=== PATIENT | male | born 1970 | race Caucasian/White ===

== ENCOUNTER 2020-04-16 07:50 | Day surgery (SDC) | payer BC ==
[~2020-04-16 07:50] MED LIST: Lidocaine 1%/Sod Bicarbonate in NS 8.4% 1 ML Syringe IDERM PRN; Sodium Chloride 0.9% 10 ML Syringe FLUSH PRN
--- NOTE | 2020-04-16 08:03 | PCM.PREANE ---
Preanesthetic Assessment - Procedure Proposed Procedure: Screening Colonoscopy - Anesthesia/Transfusion/Family Hx Anesthesia History: Prior Anesthesia Without Reaction Family History of Anesthesia Reaction: No Transfusion History: No Prior Transfusion(s) Intubation History: Unknown - Review of Systems General: No Symptoms Pulmonary: No Symptoms (Chew: 1 can/week ETOH:8-14 drinks per week.) Cardiovascular: No Symptoms (history of HTN, elevated cholesterol) Gastrointestinal: Diarrhea Neurological: No Symptoms (Motion sickness/lower back pain none present today.) Other: Reports: Easy Bleeding - Physical Assessment NPO Status Date: 04/16/20 NPO Status Time: 04:00 Vital Signs: HR:68 B/P:116/86 Sat:96% Temp:97.5 Resp:14 Height: 1.73 m Weight: 82 kg ASA Class: 2 Mental Status: Alert & Oriented x3 Airway Class: Mallampati = 2 Dentition: Reports: Normal Dentition, Caries Thyro-Mental Finger Breadths: 3 Mouth Opening Finger Breadths: 3 ROM/Head Extension: Full Lungs: Clear to Auscultation, Normal Respiratory Effort Cardiovascular: Regular Rate, Regular Rhythm, No Murmurs - Lab Values: Labs reviewed and noted and within acceptable ranges to proceed with scheduled procedure. - Allergies Allergies/Adverse Reactions: Allergies Allergy/AdvReac Type Severity Reaction Status Date / Time No Known Allergies Allergy Verified 04/15/20 13:31 - Anesthesia Plan Pre-Op Medication Ordered: None - Acknowledgements Anesthesia Type Planned: MAC Pt an Appropriate Candidate for the Planned Anesthesia: Yes Alternatives and Risks of Anesthesia Discussed w Pt/Guardian: Yes Pt/Guardian Understands and Agrees with Anesthesia Plan: Yes PreAnesthesia Questionnaire HEENT History: Reports: None Cardiovascular History: Reports: None Respiratory History: Reports: None Gastrointestinal History: Reports: None Genitourinary History: Reports: None CLAIMS ASSOCIATE History: Reports: None Musculoskeletal History: Reports: None Neurological History: Reports: None Psychiatric History: Reports: None Endocrine/Metabolic History: Reports: None Hematologic History: Reports: None Immunologic History: Reports: None Oncologic (Cancer) History: Reports: None Dermatologic History: Reports: Other (See Below) Other Dermatologic History: neck mass, sebacous cyst - Infectious Disease History Infectious Disease History: Reports: None - Past Surgical History Head Surgeries/Procedures: Reports: None HEENT Surgical History: Reports: None Cardiovascular Surgical History: Reports: None Respiratory Surgical History: Reports: None GI Surgical History: Reports: None Male Surgical History: Reports: Vasectomy Endocrine Surgical History: Reports: None Neurological Surgical History: Reports: None Musculoskeletal Surgical History: Reports: Arthroscopic Knee Oncologic Surgical History: Reports: None Dermatological Surgical History: Reports: None - SUBSTANCE USE Tobacco Use Status *Q: Current Every Day Tobacco User Recreational Drug Use History: No - HOME MEDS Home Medications: Home Meds atorvaSTATin [Lipitor] 10 mg PO BEDTIME 04/15/20 [History] - CURRENT (IN HOUSE) MEDS Current Meds: Current Medications Lactated Ringer's (Ringers, Lactated) 1,000 mls @ 125 mls/hr IV ASDIRECTED [place] Stop: 04/16/20 23:00 Lidocaine/Sodium Bicarbonate (Buffered Lidocaine 1% In Ns 8.4%) 0.25 ml IDERM ONETIME PRN PRN Reason: Prior to IV Start Stop: 04/16/20 18:00 Sodium Chloride (Saline Flush) 10 ml FLUSH ASDIRECTED PRN PRN Reason: Keep Vein Open Stop: 04/16/20 18:00
[2020-04-16] MEDS ORDERED: Propofol 200 MG/20 ML SDV ONE ×2 (08:04→09:19)
[2020-04-16] MEDS ORDERED: Midazolam 1 MG/ML 2 ML SDV ONE (08:05)
[2020-04-16] MEDS ORDERED: fentaNYL 100 MCG/2 ML SDV ONE (08:05)
[2020-04-16] MEDS: Lactated Ringers 1,000 ML IV SCH ×2 (08:05→10:04)
[2020-04-16] MEDS ORDERED: Lidocaine 1% 4 ML ONE (08:06)
--- NOTE | 2020-04-16 09:28 | PCM.PRNOTE ---
- Free Text/Narrative Note: Date: 04/16/2020 Procedure: screening colonoscopy Endoscopist: Jorge Kapadia MD Findings: excellent prep. No polyps or other abnormal findings. Detailed Report: The patient was taken to the endoscopy suite and placed in left lateral decubitus position. Timeout was performed and monitored anesthesia care was in itiated. Visual inspection of the anus revealed no abnormality. Digital rectal exam was unremarkable, the prostate felt normal. The colonoscope was inserted and advanced all the way to the cecum with ease. The appendiceal orifice was visualized. The terminal ileum was intubated. The prep was excellent. The scope was slowly withdrawn and mucosal surfaces carefully inspected. No polyps were identified. There is no diverticular disease. On retroflexion within the rectum, no hemorrhoids were appreciated. Air was suctioned from the colon prior to withdrawal of the scope. The patient tolerated the procedure well.
--- NOTE | 2020-04-16 09:36 | PCM48HPAN ---
Post Anesthesia Note - EVALUATION WITHIN 48HRS OF ANESTHETIC Vital Signs in Normal Range: Yes Patient Participated in Evaluation: Yes Respiratory Function Stable: Yes Airway Patent: Yes Cardiovascular Function Stable: Yes Hydration Status Stable: Yes Pain Control Satisfactory: Yes Nausea and Vomiting Control Satisfactory: Yes Mental Status Recovered: Yes Vital Signs: Last Vital Signs Temp 36.4 C 04/16/20 07:45 Pulse 68 04/16/20 07:45 Resp 14 04/16/20 07:45 BP 116/86 04/16/20 07:45 Pulse Ox 96 04/16/20 07:45 - COMMENTS/OBSERVATIONS Free Text/Narrative:: no anesthesia complications noted
== END 2020-04-16 10:25 | disposition home or self-care (01) ==
LOC: JD.SDS 07:50
PROVIDERS: ATTEND Surgery
DX: Z12.11 Encounter for screening for malignant neoplasm of colon (principal); E78.00 Pure hypercholesterolemia, unspecified; Z79.899 Other long term (current) drug therapy; Z98.890 Other specified postprocedural states; F17.290 Nicotine dependence, other tobacco product, uncomplicated
CPT/HCPCS: 45378; J2250; J2704; J3010; J7120; 00812